=== PATIENT | female | born 1970 | race Caucasian/White ===

== ENCOUNTER 2017-08-06 22:13 | Emergency (ER) | payer MEDICAID ==
[2017-08-06] MEDS ORDERED: HYDROmorphone 1 MG/ML Syringe ONE (22:37)
[2017-08-06] MEDS ORDERED: Ondansetron 4 MG/2 ML SDV ONE (22:38)
[2017-08-06] MEDS ORDERED: Sodium Chloride 0.9% 1,000 ML IV ONE (22:42)
--- NOTE | 2017-08-06 22:45 | EDM.PDOC ---
ED HPI GENERAL MEDICAL PROBLEM - General Chief Complaint: Back Pain or Injury Stated Complaint: LOWER BACK PAIN Time Seen by Provider: 08/06/17 22:18 Source of Information: Reports: Patient History Limitations: Reports: No Limitations - History of Present Illness INITIAL COMMENTS - FREE TEXT/NARRATIVE: HISTORY AND PHYSICAL: History of present illness: 47-year-old female presenting with chief complaint of right flank pain 3 days with past medical history of type 2 diabetes insulin-dependent, hypertension, hyperlipidemia, and GERD. Patient states that 3 days ago she began having right flank and lower back pain with radiation anteriorly to her right lower quadrant. She has had associated fever, chills, and nausea today. Pain is constant and 9 out of 10 currently. She does have a history of kidney stones 26 years ago. She denies any cough, sore throat, abdominal pain, dysuria, hematuria, diarrhea, bloody stool, or dark tarry stools. Patient also states that she has a history of "problems with my ovaries". States that she's had ovarian cyst rupture which caused significant pain. She does state that she's had an appendectomy as well as cholecystectomy however was told that there are remnants of the appendix left in place. Patient currently denies any chest pain, palpitations, shortness of breath, syncopal episodes, focal neurologic deficits. Patient is allergic to latex. -2300 CBC revealed leukocytosis of 14,000. CMP unremarkable. Amylase/lipase unremarkable. Urine pendin -2330 urine unremarkable for infection or hematuria. CT abd/pelvis pending -0100 CT abd/pelvis and Pelvic US unremarkable. Review of systems: As per history of present illness and below otherwise all systems reviewed and negative. Past medical history: As per history of present illness and as reviewed below otherwise noncontributory. Surgical history: As per history of present illness and as reviewed below otherwise noncontributory. Social history: No reported history of drug or alcohol abuse. Family history: As per history of present illness and as reviewed below otherwise noncontributory. Physical exam: HEENT: Atraumatic, normocephalic, pupils reactive, negative for conjunctival pallor or scleral icterus, mucous membranes moist, throat clear, neck supple, nontender, trachea midline. Lungs: Clear to auscultation, breath sounds equal bilaterally, chest nontender. Heart: S1S2, regular, negative for clicks, rubs, or JVD. Abdomen: Soft, nondistended, Tenderness to deep palpation RLQ. Negative for masses or hepatosplenomegaly. Right CVA tenderness. Pelvis: Stable nontender. Genitourinary: Deferred. Rectal: Deferred. Extremities: Atraumatic, negative for cords or calf pain. Neurovascular unremarkable. Neuro: Awake, alert, oriented. Cranial nerves II through XII unremarkable. Cerebellum unremarkable. Motor and sensory unremarkable throughout. Exam nonfocal. Diagnostics: CBC, CMP, UA/UC, amylase, lipase, CT abd/pelvis, Pelvic US Therapeutics: 1 L NS, 1 mg Dilaudid IV 2, 4 mg Zofran IV 2, Toradol 30 mg IV 1, Flexeril 10 mg by mouth 3 times a day #12 Impression: Acute back strain Paraspinal muscle spasms Plan: CBC showed mild leukocytosis but patient remained afebrile throughout her stay. Leukocytosis is most likely stress response from her acute pain. UA, amylase, lipase, CT abdomen pelvis as well as a pelvic ultrasound were negative for any acute pathologic findings to explain patient's right-sided pain. Pain most likely associated with back muscle spasms. Patient did state that she drove less than a week ago over 12 hours from [place] which is where she is from. She does have a history of back surgery. Patient's pain and nausea was controlled and she was discharged with instructions to follow-up with her primary care physician and return to emergency department if she had any new or worsening symptoms. She was given a prescription for Flexeril 10 mg by mouth 3 times a day #12 to be taken for her paraspinal muscle spasms. Right Back Pain Score (Numeric/FACES): 8 - Related Data Allergies Allergy/AdvReac Type Severity Reaction Status Date / Time latex Allergy Hives Verified 08/06/17 22:29 Home Meds: Home Meds Insulin Glarg,Human.Rec.Analog [Lantus] 20 unit DAILY 08/06/17 [History] Losartan [Cozaar] 1 tab DAILY 08/06/17 [History] Omeprazole 40 mg PO DAILY 08/06/17 [History] atorvaSTATin [Lipitor] 1 tab DAILY 08/06/17 [History] metFORMIN [Glucophage XR] 2 tab DAILY 08/06/17 [History] ED ROS GENERAL - Review of Systems Review Of Systems: ROS reveals no pertinent complaints other than HPI. ED EXAM, GENERAL - Physical Exam Exam: See Below Course - Vital Signs Last Recorded V/S: Last Vital Signs Temp 99.8 F 08/06/17 22:25 Pulse 112 H 08/06/17 22:25 Resp 20 08/06/17 22:25 BP 198/87 H 08/06/17 22:25 Pulse Ox 100 08/06/17 22:25 - Orders/Labs/Meds Orders: Active Orders 24 hr Category Date Time Status Abdomen Pelvis wo Cont [CT] Stat Exams 08/06/17 23:29 Taken Pelvis Non OB Comp [US] Stat Exams 08/07/17 00:17 Taken CULTURE URINE [RM] Stat Lab 08/06/17 23:18 Ordered HCG QUALITATIVE,URINE [URCHEM] Stat Lab 08/06/17 23:18 Ordered UA W/MICROSCOPIC [URIN] Stat Lab 08/06/17 23:18 Ordered Labs: Laboratory Tests 08/06/17 08/06/17 08/06/17 Range/Units 22:54 22:54 23:18 WBC 14.16 H (4.0-11.0) K/uL RBC 4.94 (4.30-5.90) M/uL Hgb 14.4 (12.0-16.0) g/dL Hct 41.9 (36.0-46.0) % MCV 84.8 (80.0-98.0) fL MCH 29.1 (27.0-32.0) pg MCHC 34.4 (31.0-37.0) g/dL RDW Std Deviation 41.8 (28.0-62.0) fl RDW Coeff of [place] 14 (11.0-15.0) % Plt Count 465 H (150-400) K/uL MPV 9.30 (7.40-12.00) fL Neut % (Auto) 74.5 (48.0-80.0) % Lymph % (Auto) 18.4 (16.0-40.0) % [place] % (Auto) 6.4 (0.0-15.0) % Eos % (Auto) 0.4 (0.0-7.0) % Baso % (Auto) 0.3 (0.0-1.5) % Neut # (Auto) 10.6 H (1.4-5.7) K/uL Lymph # (Auto) 2.6 H (0.6-2.4) K/uL [place] # (Auto) 0.9 H (0.0-0.8) K/uL Eos # (Auto) 0.1 (0.0-0.7) K/uL Baso # (Auto) 0.0 (0.0-0.1) K/uL Nucleated RBC % 0.0 /100WBC Nucleated RBCs # 0 K/uL Sodium 134 L (136-145) mmol/L Potassium 3.9 (3.5-5.1) mmol/L Chloride 99 (98-107) mmol/L Carbon Dioxide 24.2 (21.0-32.0) mmol/L BUN 9 (7.0-18.0) mg/dL Creatinine 0.9 (0.6-1.0) mg/dL Est Cr Clr Drug Dosing 61.77 mL/min Estimated GFR (MDRD) > 60.0 ml/min Glucose 271 H (74-106) mg/dL Calcium 9.8 (8.5-10.1) mg/dL Total Bilirubin 0.2 (0.2-1.0) mg/dL AST 15 (15-37) IU/L ALT 24 (14-63) IU/L Alkaline Phosphatase 58 (46-116) U/L Total Protein 7.9 (6.4-8.2) g/dL Albumin 3.8 (3.4-5.0) g/dL Globulin 4.1 H (2.0-3.5) g/dL Albumin/Globulin Ratio 0.9 L (1.3-2.8) Amylase 73 (25-115) U/L Lipase 185 (73-393) U/L Urine Color YELLOW Urine Appearance CLEAR Urine pH 6.5 (5.0-8.0) Ur Specific [place] 1.015 (1.001-1.035) Urine Protein NEGATIVE (NEGATIVE) mg/dL Urine Glucose (UA) 500 H (NEGATIVE) mg/dL Urine Ketones NEGATIVE (NEGATIVE) mg/dL Urine Occult Blood NEGATIVE (NEGATIVE) Urine Nitrite NEGATIVE (NEGATIVE) Urine Bilirubin NEGATIVE (NEGATIVE) Urine Urobilinogen 0.2 (<2.0) EU/dL Ur Leukocyte Esterase NEGATIVE (NEGATIVE) Urine RBC 0-2 (0-2/HPF) Urine WBC 0-1 (0-5/HPF) Ur Epithelial Cells OCCASIONAL (NONE-FEW) Urine Bacteria RARE (NEGATIVE) Urine Mucus LIGHT (NONE-MOD) Urine HCG, Qual (NEGATIVE) 08/06/17 Range/Units 23:18 WBC (4.0-11.0) K/uL RBC (4.30-5.90) M/uL Hgb (12.0-16.0) g/dL Hct (36.0-46.0) % MCV (80.0-98.0) fL MCH (27.0-32.0) pg MCHC (31.0-37.0) g/dL RDW Std Deviation (28.0-62.0) fl RDW Coeff of [place] (11.0-15.0) % Plt Count (150-400) K/uL MPV (7.40-12.00) fL Neut % (Auto) (48.0-80.0) % Lymph % (Auto) (16.0-40.0) % [place] % (Auto) (0.0-15.0) % Eos % (Auto) (0.0-7.0) % Baso % (Auto) (0.0-1.5) % Neut # (Auto) (1.4-5.7) K/uL Lymph # (Auto) (0.6-2.4) K/uL [place] # (Auto) (0.0-0.8) K/uL Eos # (Auto) (0.0-0.7) K/uL Baso # (Auto) (0.0-0.1) K/uL Nucleated RBC % /100WBC Nucleated RBCs # K/uL Sodium (136-145) mmol/L Potassium (3.5-5.1) mmol/L Chloride (98-107) mmol/L Carbon Dioxide (21.0-32.0) mmol/L BUN (7.0-18.0) mg/dL Creatinine (0.6-1.0) mg/dL Est Cr Clr Drug Dosing mL/min Estimated GFR (MDRD) ml/min Glucose (74-106) mg/dL Calcium (8.5-10.1) mg/dL Total Bilirubin (0.2-1.0) mg/dL AST (15-37) IU/L ALT (14-63) IU/L Alkaline Phosphatase (46-116) U/L Total Protein (6.4-8.2) g/dL Albumin (3.4-5.0) g/dL Globulin (2.0-3.5) g/dL Albumin/Globulin Ratio (1.3-2.8) Amylase (25-115) U/L Lipase (73-393) U/L Urine Color Urine Appearance Urine pH (5.0-8.0) Ur Specific [place] (1.001-1.035) Urine Protein (NEGATIVE) mg/dL Urine Glucose (UA) (NEGATIVE) mg/dL Urine Ketones (NEGATIVE) mg/dL Urine Occult Blood (NEGATIVE) Urine Nitrite (NEGATIVE) Urine Bilirubin (NEGATIVE) Urine Urobilinogen (<2.0) EU/dL Ur Leukocyte Esterase (NEGATIVE) Urine RBC (0-2/HPF) Urine WBC (0-5/HPF) Ur Epithelial Cells (NONE-FEW) Urine Bacteria (NEGATIVE) Urine Mucus (NONE-MOD) Urine HCG, Qual NEGATIVE (NEGATIVE) Meds: Medications Discontinued Medications Generic Name Dose Route Start Last Admin Trade Name Thomas PRN Reason Stop Dose Admin Hydromorphone HCl Confirm 08/06/17 22:37 08/06/17 23:09 Dilaudid Administered 08/06/17 22:38 1 mg Dose Administration 1 mg .ROUTE .STK-MED ONE Hydromorphone HCl 1 mg 08/06/17 23:23 08/06/17 23:27 Dilaudid IVPUSH 08/06/17 23:24 Not Given ONETIME ONE Hydromorphone HCl 1 mg 08/06/17 23:28 08/06/17 23:33 Dilaudid IVPUSH 08/06/17 23:29 1 mg ONETIME ONE Administration Sodium Chloride 1,000 mls @ 999 mls/hr 08/06/17 22:42 08/06/17 23:09 Normal Saline IV 08/06/17 23:42 999 mls/hr STAT ONE Administration Ketorolac Tromethamine 30 mg 08/07/17 01:18 08/07/17 01:23 Toradol IVPUSH 08/07/17 01:19 30 mg ONETIME ONE Administration Ondansetron HCl Confirm 08/06/17 22:38 08/06/17 23:09 Zofran Administered 08/06/17 22:39 4 mg Dose Administration 4 mg .ROUTE .STK-MED ONE Ondansetron HCl 4 mg 08/06/17 23:23 08/06/17 23:28 Zofran IVPUSH 08/06/17 23:24 Not Given ONETIME ONE Ondansetron HCl 4 mg 08/06/17 23:28 08/06/17 23:33 Zofran IVPUSH 08/06/17 23:29 4 mg ONETIME ONE Administration Departure - Departure Time of Disposition: 01:30 Disposition: Home, Self-Care 01 Condition: Good Clinical Impression: Acute lumbar myofascial strain Qualifiers: Encounter type: initial encounter Qualified Code(s): S39.012A - Strain of muscle, fascia and tendon of lower back, initial encounter - Discharge Information Referrals: PCP,None [Primary Care Provider] - Forms: ED Department Discharge Additional Instructions: My general discharge The following information is given to patients seen in the emergency department who are being discharged to home. This information is to outline your options for follow-up care. We provide all patients seen in our emergency department with a follow-up referral. The need for follow-up, as well as the timing and circumstances, are variable depending upon the specifics of your emergency department visit. If you don't have a primary care physician on staff, we will provide you with a referral. We always advise you to contact your personal physician following an emergency department visit to inform them of the circumstance of the visit and for follow-up with them and/or the need for any referrals to a consulting specialist. The emergency department will also refer you to a specialist when appropriate. This referral assures that you have the opportunity for follow-up care with a specialist. All of these measure are taken in an effort to provide you with optimal care, which includes your follow-up. Under all circumstances we always encourage you to contact your private physician who remains a resource for coordinating your care. When calling for follow-up care, please make the office aware that this follow-up is from your recent emergency room visit. If for any reason you are refused follow-up, please contact the [facility] Emergency Department at and asked to speak to the emergency department charge nurse. [facility] Primary Care [address] [place] [address] [facility] [address] [place] [id number] - My Orders Last 24 Hours: My Active Orders 08/06/17 23:18 CULTURE URINE [RM] Stat HCG QUALITATIVE,URINE [URCHEM] Stat UA W/MICROSCOPIC [URIN] Stat 08/06/17 23:29 Abdomen Pelvis wo Cont [CT] Stat 08/07/17 00:17 Pelvis Non OB Comp [US] Stat - Assessment/Plan Last 24 Hours: My Active Orders 08/06/17 23:18 CULTURE URINE [RM] Stat HCG QUALITATIVE,URINE [URCHEM] Stat UA W/MICROSCOPIC [URIN] Stat 08/06/17 23:29 Abdomen Pelvis wo Cont [CT] Stat 08/07/17 00:17 Pelvis Non OB Comp [US] Stat
[2017-08-06 23:20] LABS: CHLORIDE,CL 99 mmol/L (98-107); SODIUM,NA 134 mmol/L (136-145)
[2017-08-06] MEDS ORDERED: HYDROmorphone 1 MG/ML Syringe IVPUSH ONE ×2 (23:23→23:28)
[2017-08-06] MEDS ORDERED: Ondansetron 4 MG/2 ML SDV IVPUSH ONE ×2 (23:23→23:28)
[2017-08-07] MEDS ORDERED: Ketorolac 30 MG/ML SDV IVPUSH ONE (01:18)
[2017-08-07] MEDS ORDERED: Cyclobenzaprine 10 MG Tab PO ONE (01:42)
--- NOTE | 2017-08-07 17:22 | CT ---
EXAM DATE: 08/06/17 PATIENT'S AGE: 47 Patient: MARIANGEL BRAMBIAL Facility: [place], [place] Site . Site : 1970 Study: CT Abdomen/Pelvis [id number] 12:03:15 AM Ordering Physician: Papo Guzman Final Report: INDICATION: Right flank pain, fever, leukocytosis TECHNIQUE: CT abdomen and pelvis without contrast. COMPARISON: None FINDINGS: Lower chest: Unremarkable. Liver: Unremarkable. Spleen: Unremarkable. Pancreas: Unremarkable. Gallbladder and bile ducts: S/p cholecystectomy. Adrenal glands: Unremarkable. Kidneys: There is scarring on both kidneys. There is a 2 millimeter peripheral parenchymal calcification in the left kidney. There is a 2 mm nonobstructive left renal stone. No hydronephrosis or hydroureter. No perinephric fat stranding. GI tract: Unremarkable. Appendix is not visualized. No inflammatory changes in the right lower quadrant. Vascular structures: Unremarkable. Lymph nodes: Unremarkable. Pelvic Organs: Unremarkable. Bones: Unremarkable for age. IMPRESSION: No CT evidence of pyelonephritis or acute intra-abdominal process. Nonobstructive left nephrolithiasis. Bilateral renal scarring. Status post cholecystectomy. Please note that all CT scans at this facility use dose modulation, iterative reconstruction, and/or weight-based dosing when appropriate to reduce radiation dose to as low as reasonably achievable. Dictated by Era Trinh MD @ Aug 07 2017 12:05AM (Electronic Signature) Report Signed by Proxy. JERRY
--- NOTE | 2017-08-07 17:23 | US ---
EXAM DATE: 08/06/17 PATIENT'S AGE: 47 Patient: MARIANGEL BRAMBILA Facility: [place], [place] Site . Site : 1970 Study: US Pelvis [id number] 1:04:40 AM Ordering Physician: Papo Guzman Final Report: INDICATION: Right pelvic pain TECHNIQUE: Ultrasound pelvis transabdominal and transvaginal. Endovaginal imaging was performed to better visualize the endometrium and ovaries. Real- time duarte scale sonographic images with spectral and color Doppler imaging of the ovaries were obtained. COMPARISON: CT today FINDINGS: Uterus: 10 x 5.3 x 6.7 cm. Normal echotexture of the myometrium noted with no masses are seen. Endometrium: 5 mm. No sign of endometrial mass or fluid present. Right ovary: 2 x 1.9 x 2.1 cm. Normal arterial and venous blood flow seen in the right ovary. Left ovary: 2.4 x 1.5 x 2.1 cm. A small complex cyst is present in the left ovary measuring 1.4 cm. Arterial blood flow is seen within the left ovary. Cul-de-sac: No significant ascites noted. IMPRESSION: 1. Unremarkable pelvic ultrasound. Dictated by Yahir Oliva MD @ 08/07/2017 1:07:23 AM Dictated by: Yahir Oliva MD @ 08/07/2017 01:07:46 (Electronic Signature) Report Signed by Proxy. JERRY
== END 2017-08-07 01:51 | disposition home or self-care (01) ==
LOC: MW.ED 22:13
DX: S39.012A Strain of muscle, fascia and tendon of lower back, initial encounter (principal); M62.830 Muscle spasm of back; I10 Essential (primary) hypertension; E11.9 Type 2 diabetes mellitus without complications; E78.5 Hyperlipidemia, unspecified; K21.9 Gastro-esophageal reflux disease without esophagitis; Z91.040 Latex allergy status; Z79.4 Long term (current) use of insulin; Z79.899 Other long term (current) drug therapy; Z87.442 Personal history of urinary calculi; X58.XXXA Exposure to other specified factors, initial encounter
CPT/HCPCS: 36415; 74176; 76856; 80053; 81001; 81025; 82150; 83690; 85025; 87086; 96361; 96374; 96375; 99284; A9270; J1170; J1885; J2405; J7040

== ENCOUNTER 2017-08-09 02:48 | Emergency (ER) | payer MEDICAID, OTHER ==
[2017-08-09] MEDS ORDERED: Ketorolac 60 MG/2 ML SDV IM ONE (03:01)
--- NOTE | 2017-08-09 03:17 | EDM.PDOC ---
ED HPI GENERAL MEDICAL PROBLEM - General Chief Complaint: Back Pain or Injury Stated Complaint: BACK PAIN- LOWER RIGHT SIDE Time Seen by Provider: 08/09/17 02:50 Source of Information: Reports: Patient History Limitations: Reports: No Limitations - History of Present Illness INITIAL COMMENTS - FREE TEXT/NARRATIVE: HISTORY AND PHYSICAL: History of present illness: 47-year-old female presents department with chief complaint of lower back pain who was previously seen here on 08/07/17. Patient states that she returns today with similar mid/lower back pain similar to the pain that she had when I saw her in 08/07. At that time we did do a CBC, CMP, UA, amylase, lipase, CT abdomen and pelvis, as well as a pelvic ultrasound which were all unremarkable. She was also given at that time 1 L normal saline and a total of 2 mg of Dilaudid as well as 4 mg of Zofran. She was discharged with a prescription for Flexeril secondary to back muscle spasms. States that her pain is back and the Flexeril is not working. We did give her 60 mg of Toradol IM 1. As per nursing when they went to check on patient she left AMA. Review of systems: As per history of present illness and below otherwise all systems reviewed and negative. Past medical history: As per history of present illness and as reviewed below otherwise noncontributory. Surgical history: As per history of present illness and as reviewed below otherwise noncontributory. Social history: No reported history of drug or alcohol abuse. Family history: As per history of present illness and as reviewed below otherwise noncontributory. Physical exam: HEENT: Atraumatic, normocephalic, pupils reactive, negative for conjunctival pallor or scleral icterus, mucous membranes moist, throat clear, neck supple, nontender, trachea midline. Lungs: Clear to auscultation, breath sounds equal bilaterally, chest nontender. Heart: S1S2, regular, negative for clicks, rubs, or JVD. Abdomen: Soft, nondistended, nontender. Negative for masses or hepatosplenomegaly. Negative for costovertebral tenderness. Pelvis: Stable nontender. Genitourinary: Deferred. Rectal: Deferred. Extremities: Atraumatic, negative for cords or calf pain. Neurovascular unremarkable. Neuro: Awake, alert, oriented. Cranial nerves II through XII unremarkable. Cerebellum unremarkable. Motor and sensory unremarkable throughout. Exam nonfocal. Back: Right lower mid paraspinal muscle spasms and pain on palpation, no pain on vertebral palpation. Diagnostics: [] Therapeutics: Toradol IM 60 mg Impression: Back strain left AMA Plan: Patient left AMA after being given 60 mg IM Toradol. We did do a complete workup [address] abdomen and pelvis, pelvic ultrasound, CBC, CMP , amylase, lipase, urinalysis. Definitive disposition and diagnosis as appropriate pending reevaluation and review of above. 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: Polycystic Ovaries Musculoskeletal History: Reports: Back Pain, Chronic Endocrine/Metabolic History: Reports: Diabetes, Type II - Past Surgical History Cardiovascular Surgical History: Reports: Vascular Surgery GI Surgical History: Reports: Cholecystectomy Musculoskeletal Surgical History: Reports: Other (See Below) Other Musculoskeletal Surgeries/Procedures:: back surgery Social & Family History - Family History Family Medical History: Noncontributory - Tobacco Use Smoking Status *Q: Current Every Day Smoker Years of Tobacco use: 20 Packs/Tins Daily: 0.5 Used Tobacco, but Quit: No Second Hand Smoke Exposure: No - Caffeine Use Caffeine Use: Reports: Coffee, Soda - Recreational Drug Use Recreational Drug Use: No ED ROS GENERAL - Review of Systems Review Of Systems: ROS reveals no pertinent complaints other than HPI. ED EXAM, GENERAL - Physical Exam Exam: See Below Course - Vital Signs Last Recorded V/S: Last Vital Signs Temp 97.3 F 08/09/17 03:01 Pulse 86 08/09/17 03:01 Resp 15 08/09/17 03:01 BP 150/95 H 08/09/17 03:01 Pulse Ox 98 08/09/17 03:01 - Orders/Labs/Meds Meds: Medications Discontinued Medications Generic Name Dose Route Start Last Admin Trade Name Thomas PRN Reason Stop Dose Admin Ketorolac Tromethamine 60 mg 08/09/17 03:01 08/09/17 03:06 Toradol IM 08/09/17 03:02 60 mg ONETIME ONE Administration Departure - Departure Time of Disposition: 06:09 Disposition: Eloped 07 Condition: Good Clinical Impression: Back strain Qualifiers: Encounter type: subsequent encounter Qualified Code(s): S39.012D - Strain of muscle, fascia and tendon of lower back, subsequent encounter - Discharge Information Referrals: PCP,None [Primary Care Provider] - Forms: ED Department Discharge
== END 2017-08-09 05:50 | disposition left against medical advice (07) ==
LOC: MW.ED 02:48
DX: S39.012A Strain of muscle, fascia and tendon of lower back, initial encounter (principal); F17.210 Nicotine dependence, cigarettes, uncomplicated; Z79.4 Long term (current) use of insulin; E11.9 Type 2 diabetes mellitus without complications; X58.XXXA Exposure to other specified factors, initial encounter; Z53.20 Procedure and treatment not carried out because of patient's decision for unspecified reasons
CPT/HCPCS: 96372; 99283; J1885